=== PATIENT | female | born 1965 | race Caucasian/White ===

== ENCOUNTER 2019-04-26 15:53 | Inpatient (IN) | payer OTHER ==
[2019-04-26 18:13] VITALS: BMI 20.7
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
[2019-04-26] MEDS ORDERED: MAGNESIUM CITRATE 300 ML BOTTLE PO PRN (19:42)
[2019-04-26] MEDS ORDERED: MAGNESIUM HYDROX 2400MG/30ML ORAL SUSPENSION 30 ML CUP PO PRN (19:42)
[2019-04-26] MEDS ORDERED: ACETAMINOPHEN 325 MG TABLET (FP) PO PRN ×2 (19:42)
[2019-04-26] MEDS ORDERED: LORazepam 1 MG TABLET PO PRN (19:42)
[2019-04-26] MEDS ORDERED: MENTHOL/PHENOL 1 EACH UD MM PRN (19:42)
[2019-04-26] MEDS ORDERED: BISMUTH SUBSALICYLATE 524 MG/30 ML UD PO PRN (19:42)
[2019-04-26] MEDS ORDERED: LORazepam 2 MG TABLET PO ONE (19:42)
[2019-04-26] MEDS ORDERED: MAG HYDROX/AL HYDROX/SIMETH 30 ML UNIT-DOSE CUP PO PRN (19:42)
[2019-04-26] MEDS ORDERED: ALBUTEROL SO4 8 GM HFA INHALER IH PRN (19:44)
[2019-04-26] MEDS ORDERED: EMTRICITAB/RILPIVIRI/TENOF ALA (ODEFSEY) TABLET PO SCH (20:00)
[2019-04-26] MEDS ORDERED: QUEtiapine FUMARATE 100 MG TABLET (FP) PO SCH (22:00)
[2019-04-26] MEDS ORDERED: QUEtiapine FUMARATE 200 MG TABLET PO SCH (22:00)
[2019-04-26] MEDS: THIAMINE HCL 100 MG TABLET (FP) PO SCH (22:15)
[2019-04-26] MEDS: MELATONIN 5 MG TABLETS PO PRN (22:16)
[2019-04-26] MEDS: LORazepam 2 MG TABLET PO SCH (22:23)
[2019-04-27] MEDS: LORazepam 2 MG TABLET PO SCH ×4 (05:35→22:18)
[2019-04-27 09:47] LABS: HEMATOCRIT 39.8 % (32.4-45.2); HEMOGLOBIN 13.1 GM/dL (10.7-15.3); MCH 28.6 pg (25.7-33.7); MCHC 32.9 g/dl (32.0-36.0); PLATELET COUNT 149 K/MM3 (134-434); RBC 4.57 M/mm3 (3.60-5.2); RDW 16.9 % (11.6-15.6); WHITE BLOOD COUNT 2.8 K/mm3 (4.0-10.0)
[2019-04-27] MEDS ORDERED: METHADONE HCL 40 MG DISPERSABLE TABLET PO ONE (10:00)
[2019-04-27 10:13] LABS: ALBUMIN 3.3 g/dl (3.4-5.0); BILIRUBIN,TOTAL 0.4 mg/dL (0.2-1); BLOOD UREA NITROGEN 15.8 mg/dL (7-18); CALCIUM 9.1 mg/dL (8.5-10.1); CREATININE 1.2 mg/dL (0.55-1.3); POTASSIUM 4.4 mmol/L (3.5-5.1); TOT PROT 8.1 g/dl (6.4-8.2)
[2019-04-27] MEDS: PRENATAL VITAMINS W/ FOLIC ACID TABLET (FP) PO SCH (10:40)
[2019-04-27] MEDS: METHOCARBAMOL 500 MG TABLET PO PRN (10:40)
[2019-04-27] MEDS: NICOTINE 21 MG/24 HOURS TOPICAL PATCH TD SCH (10:40)
[2019-04-27] MEDS: SULFAMETHOXAZOLE/TRIMETHOPRIM 800MG/160MG D.S. TABLET PO SCH (10:40)
[2019-04-27] MEDS: NICOTINE POLACRILEX 2 MG GUM BUC PRN ×2 (10:42→20:54)
[2019-04-27] MEDS: EMTRICITAB/RILPIVIRI/TENOF ALA (ODEFSEY) TABLET PO SCH (12:05)
[2019-04-27] MEDS: cloNIDine HCL 0.1 MG TABLET PO PRN ×2 (12:06→20:56)
--- NOTE | 2019-04-27 13:00 | PN ---
[facility] CIWA - CIWA Score Nausea/Vomitin-Mild Nausea/No Vomiting Muscle Tremors: 3 Anxiety: 3 Agitation: 2 Paroxysmal Sweats: 1-Minimal Palms Moist Orientation: 0-Oriented Tacttile Disturbances: 1-Very Mild Itch/Numbness Auditory Disturbances: 0-None Visual Disturbances: 0-None Headache: 0-None Present CIWA-Ar Total Score: 11 S Progress Note (SOAP) Subjective: 53 years old female admitted on 04/26/19 for alcohol and benzo withdrawal sx [facility] received 90 mg po methadone on 04/25/19 with positive opioid urine tox begin methadone 80 mg po today and 90 mg tomorrow Objective: 04/27/19 12:59 Vital Signs Temperature 98.0 F 04/27/19 09:22 Pulse Rate 50 L 04/27/19 09:22 Respiratory Rate 18 04/27/19 09:22 Blood Pressure 120/72 04/27/19 09:22 O2 Sat by Pulse Oximetry (%) Laboratory Last Values WBC 2.8 K/mm3 (4.0-10.0) L 04/27/19 08:00 RBC 4.57 M/mm3 (3.60-5.2) 04/27/19 08:00 Hgb 13.1 GM/dL (10.7-15.3) 04/27/19 08:00 Hct 39.8 % (32.4-45.2) 04/27/19 08:00 MCV 87.0 fl (80-96) 04/27/19 08:00 MCH 28.6 pg (25.7-33.7) 04/27/19 08:00 MCHC 32.9 g/dl (32.0-36.0) 04/27/19 08:00 RDW 16.9 % (11.6-15.6) H 04/27/19 08:00 Plt Count 149 K/MM3 (134-434) D 04/27/19 08:00 MPV 10.0 fl (7.5-11.1) 04/27/19 08:00 Sodium 137 mmol/L (136-145) 04/27/19 08:00 Potassium 4.4 mmol/L (3.5-5.1) 04/27/19 08:00 Chloride 106 mmol/L (98-107) 04/27/19 08:00 Carbon Dioxide 26 mmol/L (21-32) 04/27/19 08:00 Anion Gap 5 MMOL/L (8-16) L 04/27/19 08:00 BUN 15.8 mg/dL (7-18) 04/27/19 08:00 Creatinine 1.2 mg/dL (0.55-1.3) 04/27/19 08:00 Est GFR (CKD-EPI)AfAm 60.17 04/27/19 08:00 Est GFR (CKD-EPI)NonAf 51.92 04/27/19 08:00 Random Glucose 83 mg/dL (74-106) 04/27/19 08:00 Calcium 9.1 mg/dL (8.5-10.1) 04/27/19 08:00 Total Bilirubin 0.4 mg/dL (0.2-1) 04/27/19 08:00 AST 37 U/L (15-37) 04/27/19 08:00 ALT 28 U/L (13-61) 04/27/19 08:00 Alkaline Phosphatase 95 U/L (45-117) 04/27/19 08:00 Total Protein 8.1 g/dl (6.4-8.2) 04/27/19 08:00 Albumin 3.3 g/dl (3.4-5.0) L 04/27/19 08:00 POC Urine HCG, Qual Negative 04/26/19 19:17 RPR Titer Nonreactive (NONREACTIVE) 04/27/19 08:00 lab noted long history of hiv treated with ARV has low wbc patient agrees to follow up with ID provider Assessment: 04/27/19 13:00 alcohol and benzo withdrawal sx Plan: continue ativan detox regimen and methadone maintenance
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
[2019-04-27] MEDS: QUEtiapine FUMARATE 100 MG TABLET (FP) PO SCH (22:17)
[2019-04-27] MEDS: THIAMINE HCL 100 MG TABLET (FP) PO SCH (22:18)
[2019-04-27] MEDS: MELATONIN 5 MG TABLETS PO PRN (22:20)
[2019-04-28] MEDS ORDERED: METHADONE HCL 10 MG TABLET ONE (04:20)
[2019-04-28] MEDS ORDERED: METHADONE HCL 40 MG DISPERSABLE TABLET ONE (04:21)
[2019-04-28] MEDS: METHADONE 80 MG, METHADONE 10 MG PO SCH (05:57)
[2019-04-28] MEDS: LORazepam 1 MG TABLET PO SCH ×4 (05:57→22:25)
[2019-04-28] MEDS ORDERED: METHADONE HCL 10 MG TABLET PO SCH (06:00)
[2019-04-28] MEDS: METHOCARBAMOL 500 MG TABLET PO PRN (06:02)
[2019-04-28] MEDS: NICOTINE 21 MG/24 HOURS TOPICAL PATCH TD SCH (10:32)
[2019-04-28] MEDS: PRENATAL VITAMINS W/ FOLIC ACID TABLET (FP) PO SCH (10:32)
[2019-04-28] MEDS: SULFAMETHOXAZOLE/TRIMETHOPRIM 800MG/160MG D.S. TABLET PO SCH (10:32)
[2019-04-28] MEDS: EMTRICITAB/RILPIVIRI/TENOF ALA (ODEFSEY) TABLET PO SCH (10:33)
[2019-04-28] MEDS: NICOTINE POLACRILEX 2 MG GUM BUC PRN ×2 (10:34→17:03)
--- NOTE | 2019-04-28 12:56 | PN ---
S CIWA - CIWA Score Nausea/Vomitin-Mild Nausea/No Vomiting Muscle Tremors: 1-None Visible, but [place] Anxiety: 2 Agitation: 2 Paroxysmal Sweats: No Perspiration Orientation: 0-Oriented Tacttile Disturbances: 1-Very Mild Itch/Numbness Auditory Disturbances: 0-None Visual Disturbances: 0-None Headache: 2-Mild CIWA-Ar Total Score: 9 BHS Progress Note (SOAP) Subjective: alert,irritable,anxious,interrupted sleep,pain in the body Objective: 04/28/19 12:54 Vital Signs Temperature 96.8 F L 04/28/19 09:27 Pulse Rate 63 04/28/19 09:27 Respiratory Rate 16 04/28/19 09:27 Blood Pressure 97/64 04/28/19 09:27 O2 Sat by Pulse Oximetry (%) Laboratory Last Values WBC 2.8 K/mm3 (4.0-10.0) L 04/27/19 08:00 RBC 4.57 M/mm3 (3.60-5.2) 04/27/19 08:00 Hgb 13.1 GM/dL (10.7-15.3) 04/27/19 08:00 Hct 39.8 % (32.4-45.2) 04/27/19 08:00 MCV 87.0 fl (80-96) 04/27/19 08:00 MCH 28.6 pg (25.7-33.7) 04/27/19 08:00 MCHC 32.9 g/dl (32.0-36.0) 04/27/19 08:00 RDW 16.9 % (11.6-15.6) H 04/27/19 08:00 Plt Count 149 K/MM3 (134-434) D 04/27/19 08:00 MPV 10.0 fl (7.5-11.1) 04/27/19 08:00 Sodium 137 mmol/L (136-145) 04/27/19 08:00 Potassium 4.4 mmol/L (3.5-5.1) 04/27/19 08:00 Chloride 106 mmol/L (98-107) 04/27/19 08:00 Carbon Dioxide 26 mmol/L (21-32) 04/27/19 08:00 Anion Gap 5 MMOL/L (8-16) L 04/27/19 08:00 BUN 15.8 mg/dL (7-18) 04/27/19 08:00 Creatinine 1.2 mg/dL (0.55-1.3) 04/27/19 08:00 Est GFR (CKD-EPI)AfAm 60.17 04/27/19 08:00 Est GFR (CKD-EPI)NonAf 51.92 04/27/19 08:00 Random Glucose 83 mg/dL (74-106) 04/27/19 08:00 Calcium 9.1 mg/dL (8.5-10.1) 04/27/19 08:00 Total Bilirubin 0.4 mg/dL (0.2-1) 04/27/19 08:00 AST 37 U/L (15-37) 04/27/19 08:00 ALT 28 U/L (13-61) 04/27/19 08:00 Alkaline Phosphatase 95 U/L (45-117) 04/27/19 08:00 Total Protein 8.1 g/dl (6.4-8.2) 04/27/19 08:00 Albumin 3.3 g/dl (3.4-5.0) L 04/27/19 08:00 POC Urine HCG, Qual Negative 04/26/19 19:17 RPR Titer Nonreactive (NONREACTIVE) 04/27/19 08:00 Assessment: 04/28/19 12:55 withdrawal symptom Plan: continue detox ativan regimen,methadone maintenance
[2019-04-28] MEDS: hydrOXYzine PAMOATE 25 MG CAPSULE (FP) PO PRN (13:34)
[2019-04-28] MEDS: THIAMINE HCL 100 MG TABLET (FP) PO SCH (22:25)
[2019-04-28] MEDS: QUEtiapine FUMARATE 100 MG TABLET (FP) PO SCH (22:25)
[2019-04-28] MEDS: MELATONIN 5 MG TABLETS PO PRN (22:25)
[2019-04-29] MEDS ORDERED: LORazepam 0.5 MG TABLET PO PRN
[2019-04-29] MEDS: METHADONE 80 MG, METHADONE 10 MG PO SCH (06:50)
[2019-04-29] MEDS ORDERED: METHADONE HCL 40 MG DISPERSABLE TABLET ONE (06:50)
[2019-04-29] MEDS ORDERED: METHADONE HCL 10 MG TABLET ONE (06:50)
[2019-04-29] MEDS: LORazepam 0.5 MG TABLET PO SCH ×4 (06:51→22:36)
[2019-04-29] MEDS: SULFAMETHOXAZOLE/TRIMETHOPRIM 800MG/160MG D.S. TABLET PO SCH (11:14)
[2019-04-29] MEDS: EMTRICITAB/RILPIVIRI/TENOF ALA (ODEFSEY) TABLET PO SCH (11:14)
[2019-04-29] MEDS: NICOTINE 21 MG/24 HOURS TOPICAL PATCH TD SCH (11:14)
[2019-04-29] MEDS: PRENATAL VITAMINS W/ FOLIC ACID TABLET (FP) PO SCH (11:14)
[2019-04-29] MEDS: IBUPROFEN 400 MG TABLET (FP) PO PRN (11:18)
--- NOTE | 2019-04-29 14:04 | PN ---
[facility] CIWA - CIWA Score Nausea/Vomitin-No Nausea/No Vomiting Muscle Tremors: None Anxiety: 1-Mildly Anxious Agitation: 0-Normal Activity Paroxysmal Sweats: 2 Orientation: 0-Oriented Tacttile Disturbances: 0-None Auditory Disturbances: 0-None Visual Disturbances: 0-None Headache: 0-None Present CIWA-Ar Total Score: 3 BHS Progress Note (SOAP) Subjective: c/o mild withdrawal symptoms. Objective: 04/29/19 14:03 Vital Signs 04/29/19 04/29/19 07:35 09:34 Temperature 97 F L 96.5 F L Pulse Rate 96 H 61 Respiratory 18 18 Rate Blood Pressure 92/72 97/65 Laboratory Last Values WBC 2.8 K/mm3 (4.0-10.0) L 04/27/19 08:00 RBC 4.57 M/mm3 (3.60-5.2) 04/27/19 08:00 Hgb 13.1 GM/dL (10.7-15.3) 04/27/19 08:00 Hct 39.8 % (32.4-45.2) 04/27/19 08:00 MCV 87.0 fl (80-96) 04/27/19 08:00 MCH 28.6 pg (25.7-33.7) 04/27/19 08:00 MCHC 32.9 g/dl (32.0-36.0) 04/27/19 08:00 RDW 16.9 % (11.6-15.6) H 04/27/19 08:00 Plt Count 149 K/MM3 (134-434) D 04/27/19 08:00 MPV 10.0 fl (7.5-11.1) 04/27/19 08:00 Sodium 137 mmol/L (136-145) 04/27/19 08:00 Potassium 4.4 mmol/L (3.5-5.1) 04/27/19 08:00 Chloride 106 mmol/L (98-107) 04/27/19 08:00 Carbon Dioxide 26 mmol/L (21-32) 04/27/19 08:00 Anion Gap 5 MMOL/L (8-16) L 04/27/19 08:00 BUN 15.8 mg/dL (7-18) 04/27/19 08:00 Creatinine 1.2 mg/dL (0.55-1.3) 04/27/19 08:00 Est GFR (CKD-EPI)AfAm 60.17 04/27/19 08:00 Est GFR (CKD-EPI)NonAf 51.92 04/27/19 08:00 Random Glucose 83 mg/dL (74-106) 04/27/19 08:00 Calcium 9.1 mg/dL (8.5-10.1) 04/27/19 08:00 Total Bilirubin 0.4 mg/dL (0.2-1) 04/27/19 08:00 AST 37 U/L (15-37) 04/27/19 08:00 ALT 28 U/L (13-61) 04/27/19 08:00 Alkaline Phosphatase 95 U/L (45-117) 04/27/19 08:00 Total Protein 8.1 g/dl (6.4-8.2) 04/27/19 08:00 Albumin 3.3 g/dl (3.4-5.0) L 04/27/19 08:00 POC Urine HCG, Qual Negative 04/26/19 19:17 RPR Titer Nonreactive (NONREACTIVE) 04/27/19 08:00 Labs noted. Assessment: 04/29/19 14:03 AOX3, in no acute respiratory distress. Full ROM, ambulating in the unit. Mild Withdrawal symptoms. For d/c tomorrow. 04/29/19 14:04 Plan: continue detox. D/C in AM.
[2019-04-29] MEDS: cloNIDine HCL 0.1 MG TABLET PO PRN (15:50)
[2019-04-29] MEDS: NICOTINE POLACRILEX 2 MG GUM BUC PRN (20:16)
[2019-04-29] MEDS: hydrOXYzine PAMOATE 25 MG CAPSULE (FP) PO PRN (20:16)
[2019-04-29] MEDS: QUEtiapine FUMARATE 100 MG TABLET (FP) PO SCH (22:35)
[2019-04-29] MEDS: THIAMINE HCL 100 MG TABLET (FP) PO SCH (22:35)
[2019-04-29] MEDS: MELATONIN 5 MG TABLETS PO PRN (22:36)
[2019-04-30] MEDS ORDERED: METHADONE HCL 10 MG TABLET ONE (04:27)
[2019-04-30] MEDS ORDERED: METHADONE HCL 40 MG DISPERSABLE TABLET ONE (04:28)
[2019-04-30] MEDS ORDERED: LORazepam 0.5 MG TABLET PO ONE (05:00)
[2019-04-30] MEDS: METHADONE 80 MG, METHADONE 10 MG PO SCH (05:35)
[2019-04-30 09:05] VITALS: BP 94/61; PULSE 54; TEMP 96.3
[2019-04-30] MEDS: PRENATAL VITAMINS W/ FOLIC ACID TABLET (FP) PO SCH (09:07)
[2019-04-30] MEDS: SULFAMETHOXAZOLE/TRIMETHOPRIM 800MG/160MG D.S. TABLET PO SCH (09:08)
[2019-04-30] MEDS: IBUPROFEN 400 MG TABLET (FP) PO PRN (09:08)
[2019-04-30] MEDS: EMTRICITAB/RILPIVIRI/TENOF ALA (ODEFSEY) TABLET PO SCH (09:08)
--- NOTE | 2019-04-30 14:12 | DS ---
[facility] Detox Discharge Summary Admission Date: 04/26/19 Discharge Date: 04/30/19 - History Present History: Alcohol Dependence, Sedative Dependence Additional Comments: 53 years old female admitted on 04/26/19 for alcohol and benzo withdrawal sx management treated with ativan detox regimen patient tolerated well alert oriented x 3 respiratory clear lung bilaterally on auscultation abdomen soft no rebound tenderness skin warm and dry - Physical Exam Results Vital Signs: Vital Signs Temperature 96.3 F L 04/30/19 09:04 Pulse Rate 54 L 04/30/19 09:04 Respiratory Rate 16 04/30/19 09:04 Blood Pressure 94/61 04/30/19 09:04 O2 Sat by Pulse Oximetry (%) Pertinent Admission Physical Exam Findings: alcohol and benzo withdrawal sx Laboratory Last Values WBC 2.8 K/mm3 (4.0-10.0) L 04/27/19 08:00 RBC 4.57 M/mm3 (3.60-5.2) 04/27/19 08:00 Hgb 13.1 GM/dL (10.7-15.3) 04/27/19 08:00 Hct 39.8 % (32.4-45.2) 04/27/19 08:00 MCV 87.0 fl (80-96) 04/27/19 08:00 MCH 28.6 pg (25.7-33.7) 04/27/19 08:00 MCHC 32.9 g/dl (32.0-36.0) 04/27/19 08:00 RDW 16.9 % (11.6-15.6) H 04/27/19 08:00 Plt Count 149 K/MM3 (134-434) D 04/27/19 08:00 MPV 10.0 fl (7.5-11.1) 04/27/19 08:00 Sodium 137 mmol/L (136-145) 04/27/19 08:00 Potassium 4.4 mmol/L (3.5-5.1) 04/27/19 08:00 Chloride 106 mmol/L (98-107) 04/27/19 08:00 Carbon Dioxide 26 mmol/L (21-32) 04/27/19 08:00 Anion Gap 5 MMOL/L (8-16) L 04/27/19 08:00 BUN 15.8 mg/dL (7-18) 04/27/19 08:00 Creatinine 1.2 mg/dL (0.55-1.3) 04/27/19 08:00 Est GFR (CKD-EPI)AfAm 60.17 04/27/19 08:00 Est GFR (CKD-EPI)NonAf 51.92 04/27/19 08:00 Random Glucose 83 mg/dL (74-106) 04/27/19 08:00 Calcium 9.1 mg/dL (8.5-10.1) 04/27/19 08:00 Total Bilirubin 0.4 mg/dL (0.2-1) 04/27/19 08:00 AST 37 U/L (15-37) 04/27/19 08:00 ALT 28 U/L (13-61) 04/27/19 08:00 Alkaline Phosphatase 95 U/L (45-117) 04/27/19 08:00 Total Protein 8.1 g/dl (6.4-8.2) 04/27/19 08:00 Albumin 3.3 g/dl (3.4-5.0) L 04/27/19 08:00 POC Urine HCG, Qual Negative 04/26/19 19:17 RPR Titer Nonreactive (NONREACTIVE) 04/27/19 08:00 lab noted long history of hiv treated with ARV low wbc - Treatment Hospital Course: Detox Protocol Followed, Detoxed Safely, Responded well, Discharged Condition Good, Rehab Referral Accepted Patient has Accepted [facility] - Medication Discharge Medications: Ambulatory Orders Albuterol Sulfate Inhaler - [Ventolin HFA Inhaler -] 2 inh PO Q4H PRN 03/14/16 Sulfamethoxazole/Trimethoprim [Bactrim Ds Tablet] 1 each PO DAILY 03/14/16 Quetiapine Fumarate [Seroquel -] 200 mg PO HS #30 tab 03/16/16 Emtricitab/Rilpiviri/Tenof Ala [Odefsey Tablet] 1 tab PO ONCE 04/26/19 - Diagnosis (1) Sedative, hypnotic or anxiolytic abuse, uncomplicated Status: Acute (2) Methadone maintenance therapy patient Status: Chronic (3) Alcohol dependence with uncomplicated withdrawal Status: Acute (4) Nicotine dependence Status: Acute Qualifiers: Nicotine product type: cigarettes Substance use status: in withdrawal Qualified Code(s): F17.213 - Nicotine dependence, cigarettes, with withdrawal (5) Weight loss Status: Acute (6) Asthma Status: Chronic Qualifiers: Asthma severity: mild Asthma persistence: intermittent Asthma complication type: with status asthmaticus Qualified Code(s): J45.22 - Mild intermittent asthma with status asthmaticus (7) HIV (human immunodeficiency virus infection) Status: Chronic Qualifiers: HIV symptom status: asymptomatic Qualified Code(s): Z21 - Asymptomatic human immunodeficiency virus [HIV] infection status - AMA Did Patient Leave Against Medical Advice: No CIWA Score - CIWA Score Nausea/Vomitin-No Nausea/No Vomiting Muscle Tremors: None Anxiety: 0-No Anxiety, at Ease Agitation: 0-Normal Activity Paroxysmal Sweats: 1-Minimal Palms Moist Orientation: 0-Oriented Tacttile Disturbances: 0-None Auditory Disturbances: 0-None Visual Disturbances: 0-None Headache: 0-None Present CIWA-Ar Total Score: 1
== END 2019-04-30 11:20 | disposition home or self-care (01) | DRG 773 ==
LOC: YASAS 15:53 → Y3N 20:15
PROVIDERS: ADMIT Allergy & Immunology; ATTEND Allergy & Immunology
PROC: HZ2ZZZZ Detoxification Services for Substance Abuse Treatment (ICD-10-PCS; principal; 2019-04-26)
DX: F10.230 Alcohol dependence with withdrawal, uncomplicated (principal); F13.230 Sedative, hypnotic or anxiolytic dependence with withdrawal, uncomplicated; F11.20 Opioid dependence, uncomplicated; F14.20 Cocaine dependence, uncomplicated; F17.210 Nicotine dependence, cigarettes, uncomplicated; F43.10 Post-traumatic stress disorder, unspecified; Z21 Asymptomatic human immunodeficiency virus [HIV] infection status; J45.22 Mild intermittent asthma with status asthmaticus; R63.4 Abnormal weight loss; Z68.20 Body mass index [BMI] 20.0-20.9, adult; Z87.42 Personal history of other diseases of the female genital tract; Z86.19 Personal history of other infectious and parasitic diseases
CPT/HCPCS: 36415; 80053; 81025; 85027; 86593; J0735